=== PATIENT | female | born 1980 | race Caucasian/White ===

== ENCOUNTER 2019-09-01 10:15 | Emergency (ER) | payer BC ==
[2019-09-01] MEDS ORDERED: Sodium Chloride 0.9% 1,000 ML IV ONE (10:36)
[2019-09-01] MEDS ORDERED: Metoprolol Tartrate 5 MG/5 ML SDV IVPUSH ONE (10:36)
[2019-09-01] MEDS ORDERED: Sodium Chloride 0.9% 10 ML Syringe FLUSH PRN (10:36)
[2019-09-01] MEDS ORDERED: LORazepam 2 MG/ML SDV IVPUSH ONE (10:39)
--- NOTE | 2019-09-01 10:48 | EDM.PDOC ---
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. Patient feels somewhat anxious and she has had a few life stressors recently. Denies chest pain or shortness of breath, but does complain of left upper back pain, which she states is chronic. Denies h/o CAD, DVT/PE, or arrhythmias. Patient drank 3 cups of coffee today (per usual), denies ingestion of energy drinks or stimulants. She denies , and has not been sexually active for quite some time. Patient is an occasional smoker, denies illicit drug use, and drinks alcohol occasionally. She admits to drinking a small bottle of wine last night. Onset Date: 09/01/19 Onset Time: 09:00 Duration: Hour(s): (2) Severity: Moderate Left Upper Back Pain Score (Numeric/FACES): 5 - Related Data Allergies Allergy/AdvReac Type Severity Reaction Status Date / Time No Known Allergies Allergy Verified 09/14/14 15:13 Home Meds: Home Meds Mv-Mn/Iron/FA/Herbal/Digestive [ One Tablet] 1 tab PO DAILY 09/22/14 [ History] Acetaminophen 650 mg PO Q4HR PRN 09/01/19 [History] Ibuprofen [Motrin] 600 mg PO Q6H PRN 09/01/19 [History] Propranolol [Inderal] 20 mg PO Q6H #120 tab 09/01/19 [Rx] Past Medical History - Past Health History Medical/Surgical History: Denies Medical/Surgical History Social & Family History - Tobacco Use Smoking Status *Q: Current Some Day Smoker Tobacco Use Within Last Twelve Months: Cigarettes - Alcohol Use Alcohol Use History: Yes - Recreational Drug Use Recreational Drug Use: No ED ROS GENERAL - Review of Systems Review Of Systems: Comprehensive ROS is negative, except as noted in HPI. ED EXAM, GENERAL - Physical Exam Exam: See Below Exam Limited By: No Limitations General Appearance: Alert, WD/WN, No Apparent Distress Throat/Mouth: No Airway Compromise Head: Atraumatic, Normocephalic Neck: Full Range of Motion Respiratory/Chest: No Respiratory Distress, Lungs Clear, Normal Breath Sounds Cardiovascular: No Edema, No Murmur, No Rub, Tachycardia GI/Abdominal: No Distention Back Exam: Other (mild tenderness overlying left rhomboid muscle) Extremities: Normal Inspection, Normal Range of Motion, Non-Tender, No Pedal Edema Neurological: Alert, Normal Cognition Psychiatric: Anxious Skin Exam: Warm, Dry, Intact EKG INTERPRETATION EKG Date: 09/01/19 Time: 10:22 Rhythm: Other (sinus tachycardia) Rate (Beats/Min): 117 [place]: Normal P-Wave: Present QRS: Other (frequent PVCs) ST-T: Normal QT: Normal Course - Vital Signs Last Recorded V/S: Last Vital Signs Temp 36.4 C 09/01/19 10:35 Pulse 109 H 09/01/19 11:33 Resp 18 09/01/19 12:18 BP 113/72 09/01/19 12:18 Pulse Ox 100 09/01/19 12:18 Vital Signs - 24 hr 09/01/19 09/01/19 09/01/19 10:35 11:06 11:18 Temperature [ 36.4 C Oral] Pulse, Peripheral Pulse, 125 H Peripheral [ Right Pulse Oximetry] Respiratory 22 H 18 18 Rate Blood Pressure Blood Pressure 145/91 H 135/70 125/77 [Left Upper Arm ] O2 Sat by Pulse 100 98 100 Oximetry 09/01/19 09/01/19 09/01/19 11:31 11:33 11:39 Temperature [ Oral] Pulse, 109 H Peripheral Pulse, Peripheral [ Right Pulse Oximetry] Respiratory 18 20 Rate Blood Pressure 130/79 Blood Pressure 130/79 124/72 [Left Upper Arm ] O2 Sat by Pulse 100 98 Oximetry 09/01/19 09/01/19 11:56 12:18 Temperature [ Oral] Pulse, Peripheral Pulse, Peripheral [ Right Pulse Oximetry] Respiratory 16 18 Rate Blood Pressure Blood Pressure 117/79 113/72 [Left Upper Arm ] O2 Sat by Pulse 100 100 Oximetry - Orders/Labs/Meds Orders: Active Orders 24 hr Category Date Time Status EKG Documentation Completion [RC] ASDIRECTED Care 09/01/19 10:35 Active THYROXINE (T4) FREE, DIRECT, S Stat Lab 09/01/19 12:12 Ordered TRIIODOTHYRONINE,FREE,SERUM Stat Lab 09/01/19 12:14 Ordered Sodium Chloride 0.9% [Saline Flush] Med 09/01/19 10:36 Active 10 ml FLUSH ASDIRECTED PRN Saline Lock Insert [OM.PC] Routine Oth 09/01/19 10:36 Ordered EKG 12 Lead [EK] Stat Ther 09/01/19 10:34 Ordered Medication Orders Sodium Chloride (Saline Flush) 10 ml FLUSH ASDIRECTED PRN PRN Reason: Keep Vein Open Labs: Laboratory Tests 09/01/19 09/01/19 09/01/19 Range/Units 11:10 11:10 11:10 WBC 5.8 (4.5-12.0) X10-3/uL RBC 4.85 (3.23-5.20) x10(6)uL Hgb 14.0 (11.5-15.5) g/dL Hct 42.5 D (30.0-51.3) % MCV 87.8 (80-96) fL MCH 28.9 (27.7-33.6) pg MCHC 32.9 (32.2-35.4) g/dL RDW 11.8 (11.5-15.5) % Plt Count 259 (125-369) X10(3)uL MPV 7.3 L (7.4-10.4) fL Neut % (Auto) 62.6 (46-82) % Lymph % (Auto) 25.3 (13-37) % [place] % (Auto) 6.5 (4-12) % Eos % (Auto) 5 (1.0-5.0) % Baso % (Auto) 1 (0-2) % Neut # (Auto) 3.6 (1.6-8.3) # Lymph # (Auto) 1.5 (0.6-5.0) # Harlan # (Auto) 0.4 (0.0-1.3) # Eos # (Auto) 0.3 (0.0-0.8) # Baso # (Auto) 0.0 (0.0-0.2) # PT (9.0-11.1) sec INR (1.00-1.24) APTT 23.4 L (24.4-33.2) SECONDS D-Dimer, Quantitative 0.25 (0.0-0.59) mg/LFEU Sodium 142 (135-145) mmol/L Potassium 4.2 (3.5-5.3) mmol/L Chloride 106 (100-110) mmol/L Carbon Dioxide 26 (21-32) mmol/L BUN 11 (7-18) mg/dL Creatinine 0.6 (0.55-1.02) mg/dL Est Cr Clr Drug Dosing 109.78 mL/min Estimated GFR (MDRD) > 60 (>60) BUN/Creatinine Ratio 18.3 (9-20) Glucose 106 (80-116) mg/dL Calcium 8.7 (8.6-10.2) mg/dL Magnesium 1.8 (1.8-2.5) mg/dL Total Bilirubin 0.7 (0.1-1.3) mg/dL AST 11 (5-25) IU/L ALT 23 (12-36) U/L Alkaline Phosphatase 44 L (56-112) IU/L Troponin I (4.0-60.3) pg/mL Total Protein 6.8 (6.0-8.0) g/dL Albumin 3.9 (3.5-5.2) g/dL Globulin 2.9 g/dL Albumin/Globulin Ratio 1.3 TSH, Ultra Sensitive (0.36-3.74) IU/mL 09/01/19 09/01/19 09/01/19 Range/Units 11:10 11:10 11:10 WBC (4.5-12.0) X10-3/uL RBC (3.23-5.20) x10(6)uL Hgb (11.5-15.5) g/dL Hct (30.0-51.3) % MCV (80-96) fL MCH (27.7-33.6) pg MCHC (32.2-35.4) g/dL RDW (11.5-15.5) % Plt Count (125-369) X10(3)uL MPV (7.4-10.4) fL Neut % (Auto) (46-82) % Lymph % (Auto) (13-37) % [place] % (Auto) (4-12) % Eos % (Auto) (1.0-5.0) % Baso % (Auto) (0-2) % Neut # (Auto) (1.6-8.3) # Lymph # (Auto) (0.6-5.0) # [place]lan # (Auto) (0.0-1.3) # Eos # (Auto) (0.0-0.8) # Baso # (Auto) (0.0-0.2) # PT 9.9 (9.0-11.1) sec INR 1.02 (1.00-1.24) APTT (24.4-33.2) SECONDS D-Dimer, Quantitative (0.0-0.59) mg/LFEU Sodium (135-145) mmol/L Potassium (3.5-5.3) mmol/L Chloride (100-110) mmol/L Carbon Dioxide (21-32) mmol/L BUN (7-18) mg/dL Creatinine (0.55-1.02) mg/dL Est Cr Clr Drug Dosing mL/min Estimated GFR (MDRD) (>60) BUN/Creatinine Ratio (9-20) Glucose (80-116) mg/dL Calcium (8.6-10.2) mg/dL Magnesium (1.8-2.5) mg/dL Total Bilirubin (0.1-1.3) mg/dL AST (5-25) IU/L ALT (12-36) U/L Alkaline Phosphatase (56-112) IU/L Troponin I < 4.0 L (4.0-60.3) pg/mL Total Protein (6.0-8.0) g/dL Albumin (3.5-5.2) g/dL Globulin g/dL Albumin/Globulin Ratio TSH, Ultra Sensitive < 0.01 L (0.36-3.74) IU/mL Meds: Medications Generic Name Dose Route Start Last Admin Trade Name Freq PRN Reason Stop Dose Admin Sodium Chloride 10 ml 09/01/19 10:36 Saline Flush FLUSH ASDIRECTED PRN Keep Vein Open Discontinued Medications Generic Name Dose Route Start Last Admin Trade Name Freq PRN Reason Stop Dose Admin Sodium Chloride 1,000 mls @ 999 mls/hr 09/01/19 10:36 09/01/19 10:47 Normal Saline IV 09/01/19 11:36 999 mls/hr .BOLUS ONE Administration Lorazepam 0.5 mg 09/01/19 10:39 09/01/19 10:48 Ativan IVPUSH 09/01/19 10:40 0.5 mg ONETIME ONE Administration Metoprolol Tartrate 5 mg 09/01/19 10:36 09/01/19 11:33 Lopressor IVPUSH 09/01/19 10:37 5 mg ONETIME ONE Administration Propranolol HCl 20 mg 09/01/19 12:25 Inderal PO 09/01/19 12:26 ONETIME ONE - Re-Assessments/Exams Free Text/Narrative Re-Assessment/Exam: 09/01/19 12:35 Patient reported minimal improvement after Ativan 0.5mg IV, HR 108 up to 120's, with frequent PVCs. Patient reported significant improvement after Lopressor 5mg IV, HR 88, PVCs resolved. Will order free T3 and T4 (send outs). Symptoms consistent with hyperthyroid state, will Rx Inderal 20mg q6h #120. Patient care discussed with Cha Rand, will follow up with patient tomorrow @ 0830. Departure - Departure Time of Disposition: 12:38 Disposition: Home, Self-Care 01 Condition: Good Clinical Impression: Palpitations, Hyperthyroidism Prescriptions: Propranolol [Inderal] 20 mg PO Q6H #120 tab Instructions: Hyperthyroidism Referrals: Cha Rand, GRA[employer] DRI[employer] OPERATOR [Primary Care Provider] - 1 Day Forms: ED Department Discharge Additional Instructions: Fill the prescription for Propanolol at [facility] and take as directed. Follow up with your primary physician tomorrow at 8:30 am. Return to the ER as needed. Sepsis Event Note - Evaluation Sepsis Screening Result: No Definite Risk - Focused Exam Vital Signs: Vital Signs Temp Pulse Pulse Resp BP BP Pulse Ox 09/01/19 12:18 18 113/72 100 09/01/19 11:56 16 117/79 100 09/01/19 11:39 20 124/72 98 09/01/19 11:33 109 H 130/79 09/01/19 11:31 18 130/79 100 09/01/19 11:18 18 125/77 100 09/01/19 11:06 18 135/70 98 09/01/19 10:35 36.4 C 125 H 22 H 145/91 H 100 Date Exam was Performed: 09/01/19 Time Exam was Performed: 12:34 - My Orders Last 24 Hours: My Active Orders 09/01/19 10:34 EKG 12 Lead [EK] Stat 09/01/19 10:35 EKG Documentation Completion [RC] ASDIRECTED 09/01/19 10:36 Sodium Chloride 0.9% [Saline Flush] 10 ml FLUSH ASDIRECTED PRN Saline Lock Insert [OM.PC] Routine 09/01/19 12:12 THYROXINE (T4) FREE, DIRECT, S Stat 09/01/19 12:14 TRIIODOTHYRONINE,FREE,SERUM Stat - Assessment/Plan Last 24 Hours: My Active Orders 09/01/19 10:34 EKG 12 Lead [EK] Stat 09/01/19 10:35 EKG Documentation Completion [RC] ASDIRECTED 09/01/19 10:36 Sodium Chloride 0.9% [Saline Flush] 10 ml FLUSH ASDIRECTED PRN Saline Lock Insert [OM.PC] Routine 09/01/19 12:12 THYROXINE (T4) FREE, DIRECT, S Stat 09/01/19 12:14 TRIIODOTHYRONINE,FREE,SERUM Stat
[2019-09-01] MEDS ORDERED: Propranolol 20 MG Tab PO ONE (12:25)
[2019-09-01 13:01] VITALS: BP 113/86; PULSE 88
== END 2019-09-01 12:59 | disposition home or self-care (01) ==
LOC: FB.ED 10:15
DX: R00.2 Palpitations (principal); E05.90 Thyrotoxicosis, unspecified without thyrotoxic crisis or storm; F17.210 Nicotine dependence, cigarettes, uncomplicated
CPT/HCPCS: 36415; 80053; 83735; 84439; 84443; 84481; 84484; 85025; 85379; 85610; 85730; 93005; 96361; 96374; 96375; 99285; A9270; J2060; J3490; J7030